=== PATIENT | female | born 1970 | race Caucasian/White ===

== ENCOUNTER 2018-02-27 06:36 | Observation (INO) ==
--- NOTE | 2018-02-27 14:06 | P.HPIM ---
History of Present Illness Primary Care Physician: UNKNOWN Chief Complaint: Chest pain History of Present Illness: 47-year-old female with known history of hypertension, thoracic aortic aneurysm, history of brain injury, chronic pancreatitis, recent right upper lobectomy with benign mass. Patient presented to the emergency department because of chest discomfort. Patient states that it started at 2:00 this morning woke up at a middle of sleep where he was worst pain that she is ever felt in her chest and the right side of her chest which she described as a tightness sensation 10/10. She did have some nausea without any vomiting. Patient does indicate shortness of breath, dyspnea. Denies any diaphoresis, lightheadedness, dizziness. Patient states that the pain remained constant until 530 this morning and at that time she decided come to the hospital. By the time she came to the hospital the pain had reduced down to a 7 /10. Patient states that the pain resolved in the emergency department she has not had any reoccurrence. Patient indicates that she recently just had right upper lobectomy in November. She has been covering well from that. No significant recurrent pain. Patient states that she is usually gets echocardiograms done on an annual basis because of her thoracic aneurysm. Patient had workup done in emergency department and workup was unremarkable as recommended that the patient be observed in the chest pain center for further evaluation and management. Review of Systems Review of Systems: all other systems reviewed are negative Cardiovascular: Reports chest pain PMFSH History History Provided By: Patient Medical History Medical History Family history of hypertension (Acute) History of cervical cancer (Acute) AAA (abdominal aortic aneurysm) (Acute) Brain aneurysm (Acute) Pancreatitis (Acute) Surgical History Surgical History History of hysterectomy (Acute) H/O Amplatzer atrial septal defect closure (Acute) Status post partial lobectomy of lung (Acute) Family History Family History Father No problems noted. Mother Family history of heart disease Social History Social History Substance History: No History of Abuse Second Hand Smoke Exposure: No Smoking Status: Former smoker Tobacco Type: Cigarettes How Often Do You Have a Drink Containing Alcohol: Never Recent Travel in [facility] within the Last 8 Weeks: No Recent Out of Country Travel within the Last 8 Weeks: No Medications and Allergies Allergies Allergy/AdvReac Type Severity Reaction Status Date / Time acetaminophen [From Vicodin] Allergy Rash Verified 02/27/18 06:49 hydrocodone [From Vicodin] Allergy Rash Verified 02/27/18 06:49 latex Allergy Rash Verified 02/27/18 06:49 Home Medications Medication Instructions Recorded Confirmed Type amitriptyline 50 mg PO DAILY 02/27/18 02/27/18 History amlodipine [Norvasc] 5 mg PO DAILY 02/27/18 02/27/18 History aspirin 81 mg PO DAILY 02/27/18 02/27/18 History bethanechol chloride 25 mg PO DAILY 02/27/18 02/27/18 History diltiazem HCl [Cardizem] 240 mg PO DAILY 02/27/18 02/27/18 History pryxgj-kwgfygvv-hariuei [Creon] 1 cap PO TID 02/27/18 02/27/18 History pantoprazole [Protonix] 40 mg PO DAILY 02/27/18 02/27/18 History tramadol 50 mg PO Q6H PRN 02/27/18 02/27/18 History Active Medications: Active Medications Aspirin (Aspirin) 325 mg PO DAILY ELYSIA Nitroglycerin (Nitrostat Sl) 0.4 mg SL Q5M PRN PRN Reason: CHEST PAIN Ondansetron HCl (Zofran Inj) 4 mg IV.PUSH Q6H PRN PRN Reason: NAUSEA Sodium Chloride (Ns Flush) 2 ml IV.FLUSH PRN PRN PRN Reason: FLUSH AFTER USING IV ACCESS Sodium Chloride (Ns Flush) 2 ml IV.FLUSH BID ELYSIA Physical Exam Vital signs: Intake & Output 02/25/18 02/26/18 02/27/18 02/28/18 06:59 06:59 06:59 06:59 Weight 70.8 kg Narrative: GENERAL: Well-developed, well-nourished, in no acute distress. alert and orientated HEENT: Head is normocephalic without any lesions or masses noted. Facial features are symmetric. Eyes: Pupils equal round reactive to light. Extraocular muscles are intact. Conjunctivae were clear. Oropharyngeal: Pharynx without any erythema edema. Tongue is midline without deviation. Buccal mucosa is moist without any masses or lesions NECK: Supple without any masses. Trachea midline no deviation. No JVD, no bruits are appreciated CARDIAC: Regular rhythm, regular rate. S1/S2 are heard. No murmurs gallops or rubs. LUNGS: Clear to auscultation bilaterally. No wheeze, rhonchi or rales. No use of accessory muscles on inspiration or expiration. ABDOMEN: Soft, nontender. Nondistended. Bowel sounds heard in all 4 quadrants. No organomegaly or masses. Negative rebound, negative guarding EXTREMITIES: No edema, pulses are equal bilaterally. No cyanosis or clubbing NEUROLOGY: Mood and affect appear appropriate. Cranial nerves II through XII grossly intact. Muscle strength 5/5 in upper and lower extremities bilaterally. Deep tendon reflexes are 2+ in upper and lower extremities bilaterally. Caprini VTE Risk Assessment Caprini VTE Risk Assessment: No/Low Risk (score <= 1) Caprini Risk Assessment Model: Point Value = 1 Point Value = 2 Point Value = 3 Point Value = 5 Age 41-60 Minor surgery BMI > 25 kg/m2 Swollen legs Varicose veins or History of unexplained or recurrent spontaneous Oral contraceptives or hormone replacement Sepsis (< 1 month) Serious lung disease, including pneumonia (< 1 month) Abnormal pulmonary function Acute myocardial infarction Congestive heart failure (< 1 month) History of inflammatory bowel disease Medical patient at bed rest Age 61-74 Arthroscopic surgery Major open surgery (> 45 min) Laparoscopic surgery (> 45 min) Malignancy Confined to bed (> 72 hours) Immobilizing plaster cast Central venous access Age >= 75 History of VTE Family history of VTE Factor V Leiden Prothrombin [id number] Lupus anticoagulant Anticardiolipin antibodies Elevated serum homocysteine Heparin-induced thrombocytopenia Other congenital or acquired thrombophilia Stroke (< 1 month) Elective arthroplasty Hip, pelvis, or leg fracture Acute spinal cord injury (< 1 month) Prophylaxis Regimen: Total Risk Factor Score Risk Level Prophylaxis Regimen 0-1 Low Early ambulation 2 Moderate Order ONE of the following: *Sequential Compression Device (SCD) *Heparin 5000 units SQ BID 3-4 Higher Order ONE of the following medications: *Heparin 5000 units SQ TID *Enoxaparin/Lovenox 40 mg SQ daily (WT < 150 kg, CrCl > 30 mL/min) *Enoxaparin/Lovenox 30 mg SQ daily (WT < 150 kg, CrCl > 10-29 mL/min) *Enoxaparin/Lovenox 30 mg SQ BID (WT < 150 kg, CrCl > 30 mL/min) AND/OR *Sequential Compression Device (SCD) 5 or more Highest Order ONE of the following medications: *Heparin 5000 units SQ TID (Preferred with Epidurals) *Enoxaparin/Lovenox 40 mg SQ daily (WT < 150 kg, CrCl > 30 mL/min) *Enoxaparin/Lovenox 30 mg SQ daily (WT < 150 kg, CrCl > 10-29 mL/min) *Enoxaparin/Lovenox 30 mg SQ BID (WT < 150 kg, CrCl > 30 mL/min) AND *Sequential Compression Device (SCD) Assessment and Plan Plan Chest pain, atypical Patient does have increased risk factors to include hypertension, family history of heart disease, history of tobacco use Patient with recent right upper lobectomy with benign mass in November. Pain could be related to postsurgical pain Patient does have a thoracic aneurysm, patient would benefit from imaging studies to rule out any acute abnormality Patient has been ruled out for acute coronary event with serial cardiac enzymes are negative Serial EKGs were performed and reveal myself which does not indicate any acute abnormality Exercise stress test was performed which indicated no signs of ischemia, normal examination. Continue aspirin, nitroglycerin as needed Continue monitor telemetry Hypertension Continue home medications DVT prevention Sequential compression devices Discharge Planning: Discharge home in stable condition Activity: Ad joanna. Diet: Healthy heart diet Medication per medication reconciliation Follow-up with primary medical doctor in 1 week H&P: Quality VTE Deep Vein Thrombosis/Pulmonary Embolism Present on Admission: No
[2018-02-27 14:42] LABS: Creatine Kinase 41 U/L (26-192)
--- NOTE | 2018-02-28 06:26 | TR ---
Date Performed: 02/27/2018 Time Performed: 15:21:45 DOCTOR: Zaire Gonzalez DRUG LIST: CLINICAL HISTORY: REASON FOR TEST: REASON FOR ENDING: Fatigue Dyspnea OBSERVATION: Arrhythmia: None Chest Pain: None CONCLUSION: Patient tolerated JONA protocol with Total Exercise Time=6:24 Maximum PU=458 % Max HR Achieved=82.0% Maximum EM=404/82, Testing stopped secondary to SOB, fatigue, During peak exercise, patient had upsloping ST segments, HR and BP appropriate response to exercise, recovery period, HR a nd BP returned to baseline COMMENTS: Patient exercised using the Jona protocol. No electrocardiographic changes were seen to suggest ischemia. Hemodynamic response to exercise was normal. No significant arrhythmia was prese nt.
[2018-02-28] MEDS ORDERED: Aspirin 325 MG Tablet PO SCH (09:00)
--- NOTE | 2018-03-01 00:51 | ECG ---
Date Performed: 02/27/2018 Time Performed: 14:10:25 PTAGE: 47 years EKG: Sinus rhythm LOW QRS VOLTAGE IN PRECORDIAL LEADS POSSIBLE INFERIOR MYOCARDIAL INFARCTION BORDERLINE ECG Since the PREVIOUS TRACING , no significant change noted DOCTOR: Christopher Lechuga Interpretating Date/Time 03/01/2018 00:49:32
== END 2018-02-27 19:48 | disposition home or self-care (01) ==
LOC: PHEDDLT 06:36 → PH3 06:36
PROVIDERS: ADMIT Internal Medicine; ATTEND Internal Medicine
DX: I10 Essential (primary) hypertension; F17.210 Nicotine dependence, cigarettes, uncomplicated; R07.89 Other chest pain; Z82.49 Family history of ischemic heart disease and other diseases of the circulatory system; K86.1 Other chronic pancreatitis; I71.2 Thoracic aortic aneurysm, without rupture; Z90.2 Acquired absence of lung [part of]; Z90.710 Acquired absence of both cervix and uterus; R94.31 Abnormal electrocardiogram [ECG] [EKG]; Z85.41 Personal history of malignant neoplasm of cervix uteri
CPT/HCPCS: 71010; 71045; 80053; 82550; 83690; 84484; 85025; 85379; 90774; 90784; 93005; 93017; 96374; 99285; C8952; G0378; J2405